=== PATIENT | female | born 1975 | race Caucasian/White ===

== ENCOUNTER → 2017-09-05 16:41 | Outpatient (CLI) | payer MEDICAID ==
[2017-09-05 17:14] LABS: CALC OSMOLALITY 281 mosm/kg (275-300); CALCIUM 10.1 mg/dL (8.5-10.1); CARBON DIOXIDE 27.6 mmol/L (21.0-32.0); CHLORIDE - SERUM 97 mmol/L (98-107); CREATININE - SERUM 0.8 mg/dL (0.6-1.3); POTASSIUM - SERUM 5.1 mmol/L (3.5-5.1); SODIUM 136 mmol/L (136-145); UREA NITROGEN 11 mg/dL (7-18); eGFR NON AFRICAN AMERICAN 82 mL/min (90-120)
[2017-09-05 17:18] LABS: GLUCOSE 299 mg/dL (74-106)
== END | disposition home or self-care (01) ==
LOC: D.LABREF 16:41
PROVIDERS: Nurse Practitioner
DX: I10 Essential (primary) hypertension (principal)

== ENCOUNTER → 2018-12-05 12:01 | Outpatient (CLI) | payer MEDICARE, MEDICAID | END | disposition home or self-care (01) | LOC: D.HCCARDIO 12:01 | PROVIDERS: ATTEND Internal Medicine Cardiovascular Disease | DX: I42.9 Cardiomyopathy, unspecified (principal) ==

== ENCOUNTER → 2020-08-30 12:47 | Outpatient (CLI) | payer MEDICARE ==
[2020-02-16 09:25] VITALS: BMI 37.7
[~2020-08-30 12:47] MED LIST: CARDIZEM CD240 MG PO; METOPROLOL TART50 MG PO; OMNICEF300 MG PO
== END | disposition home or self-care (01) ==
LOC: D.HCCECHO 12:47
PROVIDERS: ATTEND Internal Medicine Cardiovascular Disease
DX: I47.1 Supraventricular tachycardia (principal)